=== PATIENT | female | born 1960 | race Caucasian/White ===

== ENCOUNTER → 2016-08-26 22:23 | Outpatient (CLI) | payer BC | END | disposition home or self-care (01) | LOC: D.MAMMO 16:00 | DX: Z12.31 Encounter for screening mammogram for malignant neoplasm of breast (principal) ==

== ENCOUNTER 2018-04-03 08:00 | Outpatient (CLI) | payer BC | END 2018-04-03 09:00 | disposition home or self-care (01) | LOC: D.MAMMO 08:00 | DX: Z12.31 Encounter for screening mammogram for malignant neoplasm of breast (principal) ==

== ENCOUNTER → 2019-12-17 12:04 | Outpatient (CLI) | payer BC | END | disposition home or self-care (01) | LOC: D.RAD 12:04 | PROVIDERS: ATTEND Nurse Practitioner Acute Care | DX: K21.0 Gastro-esophageal reflux disease with esophagitis (principal); K58.9 Irritable bowel syndrome, unspecified; J02.9 Acute pharyngitis, unspecified; K59.09 Other constipation; J30.2 Other seasonal allergic rhinitis ==

== ENCOUNTER 2020-07-25 21:30 | Outpatient (CLI) | payer BC | END 2020-07-25 23:59 | disposition home or self-care (01) | LOC: D.MAMMO 21:30 | PROVIDERS: ATTEND Family Medicine | DX: Z12.31 Encounter for screening mammogram for malignant neoplasm of breast (principal) ==